=== PATIENT | female | born 1985 | race Asian ===

== ENCOUNTER 2024-10-08 10:19 | Emergency (ER) | payer OTHER ==
[~2024-10-08] VITALS: Ht 152.4 cm; Wt 75.8 kg
[2024-10-08 10:52] LABS: BILIRUBIN,URINE NEGATIVE (Neg); CLARITY,URINE SLIGHTLY CLOUDY (Clear); COLOR,URINE YELLOW (Yellow); GLUCOSE, URINE NEGATIVE (Neg); KETONES,URINE NEGATIVE (Neg); LEUKOCYTE ESTERASE ,URINE MODERATE (Neg); NITRITES, URINE NEGATIVE (Neg); OCCULT BLOOD,URINE MODERATE (Neg); PROTEIN,URINE NEGATIVE (Neg); UROBILINOGEN,URINE 0.2 E.U/dL (0.2-1.0)
[2024-10-08 10:56] LABS: URINE HCG NEGATIVE (NEG)
[2024-10-08 11:02] LABS: UA COLLECTION TYPE CLN CATCH MIDSTREAM
[2024-10-08 11:05] LABS: BACTERIA,URINE FEW /HPF (Neg); MUCUS STRANDS FEW /LPF (Neg); RBC,URINE 20-50 /HPF (0-2); SQUAMOUS EPITHELIAL CELL,UR FEW /LPF (FEW); WBC CLUMPS,URINE FEW /HPF (NEGATIVE); WBC,URINE TNTC /HPF (0-4)
[2024-10-08] MEDS ORDERED: CEPH-585 PO (11:15)
[2024-10-08] MEDS ORDERED: PHEN-716 PO (11:15)
[2024-10-08 11:22] VITALS: BP 110/63; PULSE 60; RESP 16; TEMP 98; O2SAT 98
== END 2024-10-08 11:23 | disposition home or self-care (01) ==
LOC: ER 10:20
DX: N39.0 Urinary tract infection, site not specified (principal)
CPT/HCPCS: 81001; 81025; 87077; 87088; 87186; 99283